=== PATIENT | female | born 1960 | race Caucasian/White ===

== ENCOUNTER → 2022-04-08 12:24 | Outpatient (CLI) | payer BC, SELFPAY ==
--- NOTE | ~2022-04-08 | XR_ITS ---
EXAMINATION: XR sacroiliac joints min 3V DATE: 04/08/2022 13:21 INDICATION: Polyarthralgia. Rheumatoid arthritis. Primary osteoarthritis. Right buttock pain. TECHNIQUE: 3 views of the sacroiliac joints were obtained. COMPARISON: None. FINDINGS: Bone alignment is normal. No fracture. There is mild osteoarthritis of the sacroiliac joint s characterized by tiny osteophytes. IMPRESSION: 1. Mild osteoarthritis of the sacroiliac joints. No evidence of inflammatory arthropathy. Reviewed, dictated and finalized at location A. IMPRESSION: 1. Mild osteoarthritis of the sacroiliac joints. No evidence of inflammatory ar thropathy.
--- NOTE | ~2022-04-08 | XR_ITS ---
EXAMINATION: XR hip BI 2V w AP pelvis DATE: 04/08/2022 13:22 INDICATION: Polyarthralgia. Rheumatoid arthritis. Primary osteoarthritis. Right buttock pain. TECHNIQUE: An anteroposterior view of the pelvis and 2 views of each hip were obtained. COMPARISON: None. FINDINGS: Bone alignment is normal. No fracture. There is mild osteoarthritis of the hips. IMPRESSION: 1. Mild osteoarthritis of the hips. Reviewed, dictated and finalized at location A.
--- NOTE | ~2022-04-08 | XR_ITS ---
EXAMINATION: XR lumbar spine 2-3V DATE: 04/08/2022 13:21 INDICATION: Low back pain TECHNIQUE: Anteroposterior and lateral views of the lumbar spine, and cone-down lateral view of the l umbosacral junction were obtained. COMPARISON: None. FINDINGS: Bone alignment is normal. There is no fracture. There is mild loss of intervertebral disc s pace height throughout the lumbar spine. The vertebral body heights are maintained. There is moderate facet osteoarthritis of the lower lumbar spine. Calcified atherosclerosis is noted. Moderate spondyl osis is noted at T11-12. IMPRESSION: 1. Mild lumbar spondylosis without acute findings. Reviewed, dictated and finalized at location F.
== END ==
PROVIDERS: PCP Internal Medicine
DX: M05.741 Rheumatoid arthritis with rheumatoid factor of right hand without organ or systems involvement (principal); M05.742 Rheumatoid arthritis with rheumatoid factor of left hand without organ or systems involvement; M19.041 Primary osteoarthritis, right hand; M19.042 Primary osteoarthritis, left hand; M25.50 Pain in unspecified joint; Z51.81 Encounter for therapeutic drug level monitoring; Z79.899 Other long term (current) drug therapy; D84.9 Immunodeficiency, unspecified; E55.9 Vitamin D deficiency, unspecified; M16.0 Bilateral primary osteoarthritis of hip; M53.3 Sacrococcygeal disorders, not elsewhere classified; M47.816 Spondylosis without myelopathy or radiculopathy, lumbar region
CPT/HCPCS: 72100; 72202; 73521

== ENCOUNTER 2022-04-14 16:59 | Emergency (ER) | payer BC, SELFPAY ==
--- NOTE | 2022-04-14 17:01 | ED.URI ---
HPI - URI/Sore Throat General Chief Complaint: Upper Respiratory Infection Stated Complaint: COUGH/WHEEZING/CONGESTION Time Seen by Provider: 04/14/22 17:03 Source: patient and RN notes reviewed History of Present Illness HPI Narrative: Patient is a 61-year-old female who presents the urgent care with complaints of wheezing, congestion, dry cough. Patient states is been ongoing for approximately 5 days. Patient does use a rescue inhaler as needed and took Mucinex a couple times without any relief . Patient denies of any ill exposures, nausea, vomiting or fevers. Patient does have a history of COPD. No other acute complaints. No acute distress noted. Patient aware of the plan of care. Some parts of this dictation were generated by voice recognition software and may contain typographical and/or grammatical inaccuracies. Related Data Home Medications Medication Instructions Recorded Confirmed alprazolam 0.25 mg tablet tablet 04/14/22 atorvastatin 40 mg tablet tablet 04/14/22 hydrocodone 5 mg-acetaminophen 325 tablet 04/14/22 mg tablet levocetirizine 5 mg tablet tablet 04/14/22 levothyroxine 25 mcg tablet tablet 04/14/22 methotrexate sodium 25 mg/mL ml 04/14/22 injection solution nabumetone 750 mg tablet tablet 04/14/22 omeprazole 20 mg capsule,delayed cap 04/14/22 release valsartan 160 mg tablet tablet 04/14/22 zolpidem 10 mg tablet tablet 04/14/22 Allergies Allergy/AdvReac Type Severity Reaction Status Date / Time No Known Allergies Allergy Unverified 12/19/17 13:43 Review of Systems Review of Systems: CONSTITUTIONAL: Denies fever, chills, or sweats. EYES: Denies visual changes, redness, or discharge. ENT: Denies rhinorrhea, congestion, sore throat, or otalgia. CARDIOVASCULAR: Denies chest pain, palpitations, or edema. RESPIRATORY: Reports of cough and chest congestion with intermittent wheezing GASTROINTESTINAL: Denies abdominal pain, nausea, vomiting, or diarrhea. GENITOURINARY: Denies dysuria or hematuria. SKIN: Denies rash or itching. MUSCULOSKELETAL: Denies back pain, joint pain, or myalgia. NEUROLOGIC: Denies headache, numbness, or weakness. All other systems reviewed are negative, except as documented in HPI. PMFSH Comments At the time of my signature, I reviewed and agree with the nursing past medical, surgical, social, and family history. There is no relevant family history pertinent to the patient complaint. Exam Narrative: GENERAL: This is a well-nourished, well-developed patient, in no apparent distress. HEAD: normocephalic, atraumatic. EYES: PERRL. Sclera clear/white. Vision is grossly intact. EARS: External ears normal, auditory canals clear and without drainage, TMs normal without perforation. Hearing grossly intact. NOSE: External nose normal with no obvious nasal discharge, nares without redness, no rhinorrhea. THROAT: Mucous membranes moist, posterior pharynx clear. Moderate postnasal drainage NECK: Neck supple CARDIOVASCULAR: Regular rate and rhythm without murmurs, gallops, or rubs. RESPIRATORY: Dry cough without exam. Coarse crackles and inspiratory/expiratory wheezes throughout SKIN: warm, intact with no suspicious lesions or rash, good texture and turgor. NEURO: awake, alert, and oriented to person, place and time. There were no obvious focal neurologic abnormalities. EXTREMITIES: No clubbing, cyanosis, or edema. Course Course Level of Care: Express Care Visit Vital Signs Vital signs: Vital Signs Temperature 96.8 F L 04/14/22 17:06 Pulse Rate 78 04/14/22 17:06 Respiratory Rate 16 04/14/22 17:06 Blood Pressure 145/84 H 04/14/22 17:06 Pulse Oximetry 97 04/14/22 17:06 Temperature 96.8 F L 04/14/22 17:07 Pulse Rate 78 04/14/22 17:07 Respiratory Rate 16 04/14/22 17:07 Blood Pressure 145/84 H 04/14/22 17:07 Pulse Oximetry 97 04/14/22 17:07 Reviewed-patient is informed that they may have pre-hypertension or hypertension based on a
[2022-04-14 17:06] VITALS: BP 145/84; PULSE 78; RESP 16; TEMP 36; O2SAT 97
[2022-04-14 17:07] VITALS: BP 145/84; PULSE 78; RESP 16; TEMP 36; O2SAT 97
[2022-04-14] MEDS: ALBUTEROL SULFATE NEB 2.5 MG/3 ML INH INHALATION (17:16)
[2022-04-14] MEDS: IPRATROPIUM BR 0.02% INH SOLN 0.5 MG/2.5 ML VIAL INHALATION (17:17)
[2022-04-14 17:36] VITALS: PULSE 76; RESP 16; O2SAT 97
== END 2022-04-14 17:38 | disposition home or self-care (01) ==
PROVIDERS: Emergency Provider Nurse Practitioner Family; PCP Internal Medicine
DX: J40 Bronchitis, not specified as acute or chronic (principal); J44.9 Chronic obstructive pulmonary disease, unspecified; E78.00 Pure hypercholesterolemia, unspecified; I10 Essential (primary) hypertension; K21.9 Gastro-esophageal reflux disease without esophagitis; E03.9 Hypothyroidism, unspecified
CPT/HCPCS: 94640; 99203; G0463